=== PATIENT | male | born 1945 | race Caucasian/White ===

== ENCOUNTER 2018-02-28 17:45 | Emergency (ER) | payer MEDICARE, OTHER ==
[~2018-02-28] VITALS: Ht 182.9 cm; Wt 86.2 kg
[2018-02-28] MEDS ORDERED: ASPIRIN 81 MG CHEW (CHILDREN'S ASA) PO ONE (18:00)
--- NOTE | 2018-02-28 18:00 | ED Upper Extremity ---
General Stated Complaint: ACHE IN L ARM AND SHOULDER Source: patient Exam Limitations: no limitations History of Present Illness Date Seen by Provider: February 28, 2018 Time Seen by Provider: 17:57 Initial Comments to ER with reports of left shoulder pain since yesterday. Patient is here from [place] visiting his brother who was recently placed in a custodial. Last night while sitting in the chair at the custodial he developed severe discomfort to the left shoulder. He denies any chest pain nausea shortness of breath. The only thing that makes the pain worse is any movement of the left arm. History of arthritis affecting the shoulder. He is a smoker. He was concerned this may represent a cardiac source of pain. Onset: just prior to arrival Severity: moderate Pain/Injury Location: left shoulder Modifying Factors: Worse With Movement Allergies and Home Medications Allergies Coded Allergies: No Known Drug Allergies (Unverified , 02/28/18) Home Medications Tramadol HCl 50 Mg Tablet, 50 MG PO Q6H PRN for PAIN-MODERATE TO SEVERE Prescribed by: CAMILA OTOOLE on 02/28/18 1901 Patient Home Medication List Home Medication List Reviewed: Yes Constitutional: see HPI; No chills, No fever EENTM: see HPI Respiratory: no symptoms reported; No cough, No dyspnea on exertion, No short of breath Cardiovascular: no symptoms reported Genitourinary: no symptoms reported Musculoskeletal: see HPI, joint pain Skin: no symptoms reported Psychiatric/Neurological: No Symptoms Reported Past Bzifpcs-Ocdpwa-Mvyora Hx Patient Social History Recent Foreign Travel: No Contact w/Someone Who Travel: No Physical Exam Vital Signs Vital Signs - First Documented 02/28/18 17:50 Temp 98.0 Pulse 114 Resp 18 B/P (MAP) 158/91 (113) Pulse Ox 96 O2 Delivery Room Air Capillary Refill : General Appearance: WD/WN, no apparent distress HEENT: PERRL/EOMI, normal ENT inspection Neck: non-tender, full range of motion Respiratory: no respiratory distress, no accessory muscle use Gastrointestinal: normal bowel sounds, non tender Shoulder: normal inspection, limited ROM, pain, soft tissue tenderness Elbow/Forearm: normal inspection, non-tender, Left Wrist: Yes normal inspection, Yes non-tender Neurologic/Psychiatric: alert, normal mood/affect, oriented x 3 Skin: normal color, warm/dry Comments He is unable to abduct the left arm because of pain at the shoulder. There is no erythema. The anterior shoulder and the before meals joint are tender to palpation. There is no swelling of the left arm, strong radial pulse, equal parent trainer. Progress/Results/Core Measures Lab Results Laboratory Tests Test 02/28/18 18:23 Range/Units White Blood Count 11.0 4.3-11.0 10^3/uL Red Blood Count 5.08 4.35-5.85 10^6/uL Hemoglobin 16.4 13.3-17.7 G/DL Hematocrit 46 40-54 % Mean Corpuscular Volume 91 80-99 FL Mean Corpuscular Hemoglobin 32 25-34 PG Mean Corpuscular Hemoglobin Concent 36 32-36 G/DL Red Cell Distribution Width 12.7 10.0-14.5 % Platelet Count 239 130-400 10^3/uL Mean Platelet Volume 10.2 7.4-10.4 FL Neutrophils (%) (Auto) 59 42-75 % Lymphocytes (%) (Auto) 27 12-44 % Monocytes (%) (Auto) 14 H 0-12 % Eosinophils (%) (Auto) 0 0-10 % Basophils (%) (Auto) 0 0-10 % Neutrophils # (Auto) 6.4 1.8-7.8 X 10^3 Lymphocytes # (Auto) 2.9 1.0-4.0 X 10^3 Monocytes # (Auto) 1.6 H 0.0-1.0 X 10^3 Eosinophils # (Auto) 0.0 0.0-0.3 10^3/uL Basophils # (Auto) 0.0 0.0-0.1 10^3/uL Prothrombin Time 13.5 12.2-14.7 SEC INR Comment 1.0 0.8-1.4 Activated Partial Thromboplast Time 28 24-35 SEC Sodium Level 140 135-145 MMOL/L Potassium Level 4.1 3.6-5.0 MMOL/L Chloride Level 106 98-107 MMOL/L Carbon Dioxide Level 25 21-32 MMOL/L Anion Gap 9 5-14 MMOL/L Blood Urea Nitrogen 13 7-18 MG/DL Creatinine 0.82 0.60-1.30 MG/DL Estimat Glomerular Filtration Rate > 60 BUN/Creatinine Ratio 16 Glucose Level 121 H 70-105 MG/DL Calcium Level 9.5 8.5-10.1 MG/DL Magnesium Level 2.1 1.8-2.4 MG/DL Total Bilirubin 1.0 0.1-1.0 MG/DL Aspartate Amino Transf (AST/SGOT) 18 5-34 U/L Alanine Aminotransferase (ALT/SGPT) 16 0-55 U/L Alkaline Phosphatase 64 40-136 U/L Myoglobin 56.9 10.0-92.0 NG/ML Troponin I < 0.30 <0.30 NG/ML Total Protein 7.7 6.4-8.2 GM/DL Albumin 4.2 3.2-4.5 GM/DL My Orders Orders - CAMILA OTOOLE APRN Cbc With Automated Diff (02/28/18 17:50) Magnesium (02/28/18 17:50) Chest 1 View, Ap/Pa Only (02/28/18 17:50) Ekg Tracing (02/28/18 17:50) Cardiac Profile 1 (02/28/18 17:50) Comprehensive Metabolic Panel (02/28/18 17:50) Myoglobin Serum (02/28/18 17:50) Protime With Inr (02/28/18 17:50) Partial Thromboplastin Time (02/28/18 17:50) O2 (02/28/18 17:50) Monitor-Rhythm Ecg Trace Only (02/28/18 17:50) Lipid Panel (03/01/18 06:00) Saline Lock/Iv-Start (02/28/18 17:50) Aspirin Chewable Tablet (Baby Aspirin Ch (02/28/18 18:00) Shoulder, Left, 3 Views (02/28/18 17:56) Vital Signs/I&O 02/28/18 17:50 Temp 98.0 Pulse 114 Resp 18 B/P (MAP) 158/91 (113) Pulse Ox 96 O2 Delivery Room Air Diagonstic Imaging: Xray Comments NAME: TASHIA ESPINO [facility] REC#: [id number] PT STATUS: REG ER : 1945 PHYSICIAN: CAMILA OTOOLE APRN ADMIT DATE: 02/28/18/ER Draft Date of Exam:02/28/18 SHOULDER, LEFT, 3 VIEWS INDICATION: Left shoulder pain. FINDINGS: Three views of the left shoulder shows no fracture or dislocation. There is narrowing of the glenohumeral joint with osteophytes forming at the inferior margin of the humeral head indicating some chronic joint instability. IMPRESSION: Degenerative changes of left glenohumeral joint. No acute abnormality seen. Dictated on workstation # [id number] Dict: 02/28/18 1813 Trans: 02/28/18 1816 TS [id number] Interpreted by: SLICK ANTHONY MD Electronically signed by: NAME: TASHIA ESPINO [facility] REC#: [id number] PT STATUS: REG ER : 1945 PHYSICIAN: CAMILA OTOOLE APRN ADMIT DATE: 02/28/18/ER Signed Date of Exam:02/28/18 CHEST 1 VIEW, AP/PA ONLY INDICATION: Lower respiratory infection, chest pain. EXAMINATION: Portable chest at 6:01 p.m. FINDINGS: Heart size and pulmonary vascularity are normal. Lungs are clear. There are no effusions or pneumothoraces. IMPRESSION: Negative chest. Dictated by: Dictated on workstation # [id number] Dict: 02/28/18 1812 Trans: 02/28/18 1822 PJE [id number] Interpreted by: SLICK ANTHONY MD Electronically signed by: SLICK ANTHONY MD 02/28/181821 Departure Impression Primary Impression: Arthritis of left shoulder region Disposition: 01 HOME, SELF-CARE Condition: Stable Departure-Patient Inst. Decision time for Depature: 18:35 Referrals: NO,LOCAL PHYSICIAN (PCP) Primary Care Physician Patient Instructions: Shoulder Pain (DC) Add. Discharge Instructions: 1. Medication as directed for shoulder pain 2. Return to ER for any concerns 3. Follow-up with orthopedic surgeon of your choosing Scripts Tramadol HCl (Ultram) 50 Mg Tablet 50 MG PO Q6H PRN for PAIN-MODERATE TO SEVERE, #14 TAB Prov: CAMILA OTOOLE APRN 02/28/18 CAMILA OTOOLE APRN February 28, 2018 18:00
--- NOTE | 2018-02-28 18:17 | Diagnostic Imaging Report ---
INDICATION: Left shoulder pain. FINDINGS: Three views of the left shoulder shows no fracture or dislocation. There is narrowing of the glenohumeral joint with osteophytes forming at the inferior margin of the humeral head indicating some chronic joint instability. IMPRESSION: Degenerative changes of left glenohumeral joint. No acute abnormality seen. Dictated by: Dictated on workstation # [id number]
--- NOTE | 2018-02-28 18:22 | Diagnostic Imaging Report ---
INDICATION: Lower respiratory infection, chest pain. EXAMINATION: Portable chest at 6:01 p.m. FINDINGS: Heart size and pulmonary vascularity are normal. Lungs are clear. There are no effusions or pneumothoraces. IMPRESSION: Negative chest. Dictated by: Dictated on workstation # [id number]
[2018-02-28 18:32] LABS: BASOPHILS % (AUTO) 0 % (0-10); EOSINOPHILS % (AUTO) 0 % (0-10); HEMATOCRIT 46 % (40-54); HEMOGLOBIN 16.4 G/DL (13.3-17.7); LYMPHOCYTES # (AUTO) 2.9 X 10^3 (1.0-4.0); LYMPHOCYTES % (AUTO) 27 % (12-44); MEAN CORPUSCULAR HEMOGLOBIN 32 PG (25-34); MEAN CORPUSCULAR HGB CONC 36 G/DL (32-36); MEAN CORPUSCULAR VOLUME 91 FL (80-99); MEAN PLATELET VOLUME 10.2 FL (7.4-10.4); MONOCYTES # (AUTO) 1.6 X 10^3 (0.0-1.0); MONOCYTES % (AUTO) 14 % (0-12); NEUTROPHILS # (AUTO) 6.4 X 10^3 (1.8-7.8); NEUTROPHILS % (AUTO) 59 % (42-75); PLATELET COUNT 239 10^3/uL (130-400); RED BLOOD COUNT 5.08 10^6/uL (4.35-5.85); RED CELL DISTRIBUTION WIDTH 12.7 % (10.0-14.5)
[2018-02-28 18:41] LABS: PROTHROMBIN TIME PATIENT 13.5 SEC (12.2-14.7)
[2018-02-28 18:48] LABS: ALANINE AMINOTRANSFERASE 16 U/L (0-55); ALBUMIN 4.2 GM/DL (3.2-4.5); ALKALINE PHOSPHATASE 64 U/L (40-136); BUN/CREATININE RATIO 16; CALCIUM 9.5 MG/DL (8.5-10.1); CARBON DIOXIDE 25 MMOL/L (21-32); CHLORIDE 106 MMOL/L (98-107); CREATININE SERUM 0.82 MG/DL (0.60-1.30); GFR ESTIMATED > 60; GLUCOSE 121 MG/DL (70-105); MAGNESIUM 2.1 MG/DL (1.8-2.4); POTASSIUM 4.1 MMOL/L (3.6-5.0); SODIUM 140 MMOL/L (135-145); TOTAL PROTEIN 7.7 GM/DL (6.4-8.2)
[2018-02-28 18:55] LABS: MYOGLOBIN SERUM 56.9 NG/ML (10.0-92.0)
[2018-02-28] MEDS ORDERED: TRAM-42 PO (19:01)
[2018-02-28] MEDS ORDERED: RX-TRAMADOL 50 MG (ULTRAM) TAB PPK#4 PO ONE (19:26)
[2018-02-28] MEDS ORDERED: RX-TRAMADOL 50 MG (ULTRAM) TAB PPK#4 PO STA (19:29)
[2018-02-28 19:33] VITALS: BP 158/91
== END 2018-02-28 19:33 | disposition home or self-care (01) ==
LOC: EDUNIT# 17:45 → ER 17:48
DX: M19.012 Primary osteoarthritis, left shoulder (principal)
CPT/HCPCS: 36415; 71045; 73030; 80053; 83735; 83874; 84484; 85025; 85610; 85730; 93005